=== PATIENT | female | born 1950 | race Caucasian/White ===

== ENCOUNTER → 2023-12-26 06:32 | Day surgery (SDC) | payer MEDICARE, OTHER, SELFPAY | LOC: GI 06:32 | PROVIDERS: ATTENDING PHYSICIAN Specialist | DX: Z12.11 Encounter for screening for malignant neoplasm of colon (principal); D12.3 Benign neoplasm of transverse colon; K57.30 Diverticulosis of large intestine without perforation or abscess without bleeding; Z86.010 Personal history of colon polyps | CPT/HCPCS: 45385; 45380; 88305 ==

== ENCOUNTER 2024-10-01 18:58 | Emergency (ER) | payer MEDICARE, OTHER, SELFPAY ==
[2024-10-01 19:06] VITALS: BP 165/91
[2024-10-02] MEDS: TYLENOL 1000 MG PO (00:23)
[2024-10-02 00:35] VITALS: BMI 24.5
[2024-10-02] MEDS: ROXICODONE 10 MG PO (00:56)
[2024-10-02 01:00] VITALS: BP 155/72
[2024-10-02 03:00] VITALS: BP 139/78
--- NOTE | 2024-10-02 03:02 | ED.GENMED ---
History of Present Illness
General
Chief Complaint: Back Pain
Source: patient and spouse
Exam Limitations: none
Time Seen by Provider: 10/01/24 19:14
History of Present Illness
History of Present Illness:
This is 74-year-old female who presents after she fell on her buttocks. She was carrying a TV and fell backwards onto her butt. She complains of low back pain. Injury occurred this afternoon. No numbness or tingling in the legs. No radiation of
the pain. states her pain has been persistent
Past History
Past History
ED Past Medical History: Psychiatric (Anxiety) and Other (Osteoporosis)
ED Past Surgical History: Tonsilectomy
Social History
Tobacco: Non-smoker
Alcohol: Occasional
Personal:
Living: with family
Employment: Employed
Family History
Family History: Negative Early CAD
Phy Exam
Physical Exam
Physical Exam:
CONSTITUTIONAL Vital signs reviewed, Patient alert and oriented to person, place and time. Well-appearing
HEAD atraumatic, normocephalic.
EYES eyelids normal to inspection, Extraocular muscles intact, Conjunctiva normal, Sclera normal.
NECK normal range of motion, Trachea midline, no jugular venous distention.
RESP no respiratory distress
BACK No obvious deformities, tenderness noted to the L3-L5 region midline. No step-offs. Negative straight leg
UPPER EXTREMITY Gross Range of motion normal, gross motor strength normal
LOWER EXTREMITY Gross range of motion normal, Gross motor strength normal
NEURO Speech normal, No focal motor deficits include, [place] coma scale 15, Memory normal, Cranial Nerves intact to screening exam.
SKIN Skin warm, dry, and normal in color.
PSYCHIATRIC Patient oriented to person place and time, Normal affect.
Course
Orders/Labs/Results
Orders:
Orders
10/02/24 00:21
Acetaminophen [Tylenol] 1,000 mg .ROUTE .STK-MED ONE
10/02/24 00:22
Acetaminophen [Tylenol] 1,000 mg PO NOW STA
10/02/24 00:49
CT Lumbar Spine W/o Iv Contras Urgent
Comment:
Reason For Exam: fall, low back pain
Oxycodone [Roxicodone] 10 mg PO NOW STA
Vital Signs
Initial and Last Documented VS:
Initial Vital Signs
Temp Pulse Resp BP Pulse Ox
98.2 F 77 20 165/91 98
10/01/24 19:06 10/01/24 19:06 10/01/24 19:06 10/01/24 19:06 10/01/24 19:06
Last Documented Vital Signs
Temp Pulse Resp BP Pulse Ox
98.2 F 77 20 155/72 90
10/01/24 19:06 10/01/24 19:06 10/01/24 19:06 10/02/24 01:00 10/02/24 03:00
MDM/Problems Addressed
MDM/Problems Addressed:
Possible lumbar compression fracture, low back
*Radiology
Radiology exam reviewed: radiology read reviewed
*Pulse Oximetry
Patient hypoxic: no
*Critical Care Note
Total Time (30-74mins, 75-104mins- exclusive of procedures): Not Applicable
Data Reviewed
Source: patient and spouse
Patient Management
Escalation/DeEscalation of care consider admission/obs:
Pain much better controlled and pain is actually gone. No neurofindings. Suspect questionable minor compression fracture. Recommended PCP follow
ED Attending Note
-
Portions of this chart may have been created with voice recognition software.� Occasional wrong word or��sound alike� substitutions may have occurred due to the inherent limitations of voice recognition software.
Discharge Plan
Departure
Patient Disposition: Home (Routine Discharge)
Date of Disposition: 10/02/24
Time of Disposition: 03:03
Patient with high blood pressure during this ER visit?: Yes
Discharge Problem:
Low back pain, Closed compression fracture of lumbar vertebra
Instructions: Low Back Pain (DC), Narcotic Pain Medication
Prescriptions:
New
oxycodone-acetaminophen [Percocet] 5-325 mg tablet
2 tab PO Q6HPRN PRN (Reason: pain) Qty: 14 0RF
No Action
paroxetine HCl 20 MG tablet
20 mg PO DAILY
coenzyme Q10 [CoQ-10] 30 MG capsule
30 mg PO DAILY
calcium carb-mag oxide-vit D3 [Calcium Magnesium plus D] 1 EACH tablet
1 tab PO DAILY
raspberry flavor, artificial 1 ML solution
1 ml PO DAILY
FOLIC ACID
DAILY
Multiple Vitamins
DAILY
VITAMIN D
DAILY
meclizine [Antivert] 25 MG tablet
25 mg PO QIDPRN PRN (Reason: dizziness) Qty: 20 0RF
ondansetron 4 MG tablet,disintegrating
4 - 8 mg PO TIDPRN PRN (Reason: NAUSEA) Qty: 15 0RF
fluconazole 150 MG tablet
150 mg PO NOW Qty: 2 0RF
Rx Instructions:
Repeat in one week if necessary.
amoxicillin-pot clavulanate 1 TABLET tablet
1 tab PO Q12 Qty: 14 0RF
Referrals:
[place] Serrano MD [Family Provider] -
Activity Restrictions/Additional Instructions:
Please see your doctor in the next 3 to 5 days for follow-up and reevaluation. If pain persists or worsen, an MRI of your low back may be necessary. Please rest. Use ibuprofen or Tylenol for mild to moderate pain but use pain medications for
severe pain. Please use stool softeners if you do use the narcotic pain medicines.
Interventions
Interventions:
*Risk Screen - Suicide Last Done: 10/02/24 00:35
*General Assessment Last Done: 10/01/24 19:06
*Neglect/Abuse Screening Last Done: 10/02/24 00:35
ED- Fall Risk Assessment Last Done: 10/02/24 00:37
*ED COVID-19 Vaccine History Last Done: 10/02/24 00:35
ED-Musculoskeletal Assessment Last Done: 10/02/24 00:37
Discharge Date and Time
Print Language: CZECH
== END 2024-10-02 03:32 | disposition home or self-care (01) ==
LOC: EMR 18:58
PROVIDERS: EMERGENCY PHYSICIAN Emergency Medicine; FAMILY PHYSICIAN Family Medicine
DX: S32.019A Unspecified fracture of first lumbar vertebra, initial encounter for closed fracture (principal); M54.50 Low back pain, unspecified; W19.XXXA Unspecified fall, initial encounter
CPT/HCPCS: 99283; 72131

== ENCOUNTER → 2025-01-25 14:23 | Outpatient (REF) | payer MEDICARE, OTHER, SELFPAY | LOC: HWWDC 14:23 | PROVIDERS: ATTENDING PHYSICIAN Family Medicine; FAMILY PHYSICIAN Internal Medicine Cardiovascular Disease | DX: M81.0 Age-related osteoporosis without current pathological fracture (principal); Z12.31 Encounter for screening mammogram for malignant neoplasm of breast | CPT/HCPCS: 77063; 77067; 77080 ==

== ENCOUNTER 2025-03-21 16:22 | Emergency (ER) | payer MEDICARE, OTHER, SELFPAY ==
[2025-03-21 16:28] VITALS: BMI 25.7
[2025-03-21 16:36] VITALS: BP 173/92
[2025-03-21] MEDS: MORPHINE SULFATE 4 MG IV (16:59)
--- NOTE | 2025-03-21 18:30 | ED.GENMED ---
History of Present Illness
General
Chief Complaint: Musculo-Skeletal Complaint
Time Seen by Provider: 03/21/25 16:47
History of Present Illness
History of Present Illness:
75-year-old female presents to the emergency department for evaluation of right ankle pain, she states she was knocked over by an 80 pound dog and she is not able to bear weight on the right lower extremity.
Past History
Past History
ED Past Medical History: Psychiatric (Anxiety) and Other (Osteoporosis)
ED Past Surgical History: Tonsilectomy
Social History
Tobacco: Non-smoker
Alcohol: Occasional
Personal:
Living: with family
Employment: Employed
Family History
Family History: Negative Early CAD
Review of Systems
Review of Systems
Allergies reviewed?: Yes
All Other Systems: ROS reviewed and negative except as documented in HPI and ROS
Phy Exam
Physical Exam
Physical Exam:
GEN: Well appearing, NAD, WDWN
HEENT: Oral mucosa moist, no scleral icterus
Cardiac: Regular rate
Lung: No respiratory distress, no tachypnea
MSK: Mild ecchymosis and swelling of the right lateral malleolus with focal tenderness, no deformity or tenderness to the base of the fifth metatarsal. No tenderness to the proximal fibula
Skin: Good color, no pallor or jaundice, no rashes
Neuro: AO x3, moves all extremities freely
Psych: Calm, cooperative
Course
Orders/Labs/Results
Orders:
Orders
03/21/25 16:49
CR Ankle - Right Min 3 Views * Urgent
Comment:
Reason For Exam: fall
03/21/25 16:58
Morphine Sulfate 4 mg .ROUTE .STK-MED ONE
03/21/25 16:59
Morphine Sulfate 4 mg IV NOW STA
Vital Signs
Initial and Last Documented VS:
Initial Vital Signs
Pulse Ox
100
03/21/25 16:30
Last Documented Vital Signs
Temp Pulse Resp BP Pulse Ox
98.4 F 79 20 173/92 98
03/21/25 16:36 03/21/25 16:36 03/21/25 16:36 03/21/25 16:36 03/21/25 18:33
MDM/Problems Addressed
MDM/Problems Addressed:
X-rays unremarkable by my interpretation, likely ATFL sprain, will place an orthopedic boot and referred to Ortho as an outpatient
*Pulse Oximetry
SaO2: 98
Oxygen Mode of Delivery: Room air
Patient hypoxic: no
*Critical Care Note
Total Time (30-74mins, 75-104mins- exclusive of procedures): Not Applicable
ED Attending Note
-
Portions of this chart may have been created with voice recognition software.� Occasional wrong word or��sound alike� substitutions may have occurred due to the inherent limitations of voice recognition software.
Discharge Plan
Departure
Patient Disposition: Home (Routine Discharge)
Date of Disposition: 03/21/25
Time of Disposition: 18:32
Patient with high blood pressure during this ER visit?: No
Discharge Problem:
Right ankle sprain
Instructions: Ankle sprain - ED discharge instructions
Prescriptions:
No Action
paroxetine HCl 20 MG tablet
20 mg PO DAILY
coenzyme Q10 [CoQ-10] 30 MG capsule
30 mg PO DAILY
calcium carb-mag oxide-vit D3 [Calcium Magnesium plus D] 1 EACH tablet
1 tab PO DAILY
raspberry flavor, artificial 1 ML solution
1 ml PO DAILY
FOLIC ACID
DAILY
Multiple Vitamins
DAILY
VITAMIN D
DAILY
meclizine [Antivert] 25 MG tablet
25 mg PO QIDPRN PRN (Reason: dizziness) Qty: 20 0RF
ondansetron 4 MG tablet,disintegrating
4 - 8 mg PO TIDPRN PRN (Reason: NAUSEA) Qty: 15 0RF
fluconazole 150 MG tablet
150 mg PO NOW Qty: 2 0RF
Rx Instructions:
Repeat in one week if necessary.
amoxicillin-pot clavulanate 1 TABLET tablet
1 tab PO Q12 Qty: 14 0RF
oxycodone-acetaminophen [Percocet] 5-325 mg tablet
2 tab PO Q6HPRN PRN (Reason: pain) Qty: 14 0RF
Referrals:
Silvio Clemens MD [Active, Orthopedics]
[place] Serrano MD [Family Provider, Family Practice]
Interventions
Interventions:
*Risk Screen - Suicide Last Done: 03/21/25 17:02
*General Assessment Last Done: 03/21/25 17:02
*Neglect/Abuse Screening Last Done: 03/21/25 17:02
*ED- Fall Risk Assessment Last Done: 03/21/25 17:02
*ED COVID-19 Vaccine History Last Done: 03/21/25 17:02
Discharge Date and Time
Print Language: BOLIVIAN
== END 2025-03-21 19:24 | disposition home or self-care (01) ==
LOC: EMR 16:22
PROVIDERS: EMERGENCY PHYSICIAN Student in an Organized Health Care Education/Training Program; FAMILY PHYSICIAN Family Medicine
DX: S93.401A Sprain of unspecified ligament of right ankle, initial encounter (principal); W54.1XXA Struck by dog, initial encounter; M81.0 Age-related osteoporosis without current pathological fracture
CPT/HCPCS: 99284; 96374; 73610